=== PATIENT | female | born 1990 | race Hispanic/Latino ===

== ENCOUNTER 2017-08-23 11:19 | Day surgery (SDC) | payer BC, OTHER ==
[2017-08-21 17:55] VITALS: BMI 20.9
[2017-08-23 11:50] VITALS: RESP 18
[2017-08-23 11:51] LABS: HEMATOCRIT 40.6 % (34.0-47.0); MEAN CELL VOLUME 87.5 fl (81.0-99.0); MEAN CORPUSCULAR HEMOGLOBIN 28.7 pg (27.0-31.0); MEAN CORPUSCULAR HGB CONC 32.8 g/dL (33.0-37.0); RED CELL DISTRIBUTION WIDTH 13.1 % (11.5-14.5); WHITE BLOOD COUNT 5.1 K/uL (4.8-10.8)
[2017-08-23] MEDS ORDERED: Lactated Ringer's 1,000 ML IV ONE ×3 (12:13→17:00)
[2017-08-23] MEDS ORDERED: Lidocaine 4% (Laryng-O-Jet) Kit MM ONE (13:09)
[2017-08-23] MEDS ORDERED: Rocuronium 10 mg/ml (5 ml) ONE (13:09)
[2017-08-23] MEDS ORDERED: Propofol 10 mg/ml Inj (20 ML) ONE (13:09)
[2017-08-23] MEDS ORDERED: Succinylcholine 200 mg/10 ml Inj IV ONE (13:11)
[2017-08-23] MEDS ORDERED: ceFAZolin IV 1 gm in Dextrose 2 GM/100 ML BAG IVPB ONE (13:15)
[2017-08-23] MEDS ORDERED: ceFAZolin IV 1 gm in Dextrose 1 GM/50 ML BAG IVPB ONE (13:16)
[2017-08-23] MEDS ORDERED: Midazolam 2 MG/2 ML VIAL ONE (13:54)
[2017-08-23] MEDS: Bupivacaine 0.5% Inj(30mL) ONE ×3 (14:20→14:35)
[2017-08-23] MEDS ORDERED: Dexamethasone 4 mg/1 ml ONE (14:31)
[2017-08-23] MEDS ORDERED: Neostigmine Methylsulfate 2 MG/2 ML ML IV ONE (16:01)
[2017-08-23] MEDS ORDERED: HYDROmorphone 0.5 mg/0.5 ml ISec IVP PRN (16:22)
[2017-08-23] MEDS ORDERED: Lactated Ringer's 1,000 ML IV SCH (16:30)
[2017-08-23] MEDS ORDERED: Oxycodone/Acetaminophen 5/325 mg Tab PO PRN (16:53)
[2017-08-23] MEDS ORDERED: Oxycodone/Acetaminophen 5/325 mg Tab PO ONE (19:15)
[2017-08-23 20:05] VITALS: BP 117/64; PULSE 78; TEMP 98.5; O2SAT 97
--- NOTE | 2017-09-03 10:05 | PCM.OP ---
Operative Report - Operative Report Date of Surgery/Procedure: 08/23/17 Time of Surgery/Procedure: 08:00 Surgeon: Dr. Herb Hunt Data Base Administrator: Dr. Chet Faria Anesthesia/Sedation: general/Dr. 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 2-appendectomy. Brief History: Dr. Faria requested an intraoperative consult for endometriosis involving the rectum and appednix. Description of the procedure: The patient had already been brought to the operating room by Dr. chet Faria (separate dictation). After taking control of the robotic consule the first of three lesions were examined by videoscopy. With blunt and sharp dissection with the aid of electrocautery the first lesion , most disral was dissected circumferentially and lifted from the rectal wall. After removing it en-bloc it was sent separartely to pathology. The other two lesions were removed in a similar manner. Hemostasis was deemed adeqaute as we proceded to evaluate the appendix. With blunt and sharp dissection the mesentery of the appmnedix was freed and the appnediceal artery was dessicated with electrocautery. With the appendix freed to the base a double ligature of 3- 0 PDS was placed via loop sutures to the base. The appendix was then transected and sent to pathology as a separate specimen. Hemostasis was deemed adeqaute and the operation was again turned over to Dr. Faria (separate dictation). Estimated Blood Loss: 5 cc Sponge/Instrument Count: correct Complications: none Discharge & Condition: stable
--- NOTE | 2017-09-04 17:49 | OP ---
PROCEDURE DATE: 08/23/2017 SURGEON: Chet Faria MD. ASSISTED BY: Herb Hunt MD. ANESTHESIA PERFORMED BY: Stephy Valencia MD. PREOPERATIVE DIAGNOSES: Severe pelvic pain, dysmenorrhea, dyspareunia, bladder pain, rule out endometriosis. POSTOPERATIVE DIAGNOSES: Severe pelvic pain, dysmenorrhea, dyspareunia, bladder pain, rule out endometriosis, extensive pelvic endometriosis extending to the pelvis and the rectum and the appendix. PROCEDURE PERFORMED: Cystoscopy with bilateral ureteral catheterization, hysteroscopy, dilatation and curettage, injection of IC-Green to the ureter, robotic laparoscopic excision of endometriosis, bilateral ureterolysis, excision of rectal endometriosis, and appendectomy to be dictated separately by Dr. Herb Hunt. SPECIMEN SENT: Endometrial biopsies, appendix, left periureteral endometriosis, right periureteral endometriosis, posterior cervical endometriosis, sigmoid mesentery endometriosis, perirectal endometriosis, left uterosacral endometriosis, and left perirectal endometriosis. COMPLICATIONS: None. ESTIMATED BLOOD LOSS: Minimal. INDICATIONS FOR THE PROCEDURE: This patient is a 27-year-old female with a very long history of pelvic pain, very severe, both on the periods and in between the periods as well as dyspareunia. She had been under the care of both physical therapy, which she did for a long time as well as therapeutic injection for pain, which helped but did not completely solve the problem. She was referred to me and had multiple emergency room admissions prior to my visits. Upon examination, she displayed clinical signs of endometriosis as well as peritoneal signs of endometriosis. She was counseled with regards to the risks and benefits of the surgery and she signed the consent and was taken to the operative room. DESCRIPTION OF PROCEDURE: After adequate anesthesia was obtained, patient was placed in dorsal lithotomy position. She was prepped and draped. The surgeon gowned and gloved. At this point, a cystoscope was inserted into the bladder under direct visualization. A pancystoscopy was performed revealing normal-sized bladder with no evidence of interstitial cystitis. Both ureteral ostia appeared to be in the normal anatomic position. An open-ended stent was used to catheterize the left catheter. The left ureter, which was pushed all the way to the distal ureter, 5 mL of IC-Green were then injected. At this point, on the right-hand side, a stent was advanced into the right ureter all the way to the distal ureter and 5 mL of IC-Green was then injected. At this point, the stents were removed, the cystoscope was removed, and a 16-Chinese [place] was placed into the bladder. At this point, attention was in the vagina where a speculum was placed in the vagina. The anterior lip of the cervix was grasped. The cervix was dilated and a hysteroscope was inserted into the uterine cavity. The uterine cavity appeared to be normal in size. It appeared to be slightly proliferative with slight polypoid appearance. Therefore, a gentle D and C was performed without any complications and sent to pathology. At this point, after placing the uterine manipulator in the uterus, attention was on the abdomen where after re-gowning and re-gloving, the abdomen was entered utilizing the traditional open laparoscopy technique. The abdomen was insufflated and at this point, under direct visualization, 3 additional trocars were inserted, left upper quadrant, right upper quadrant, and left mid quadrant. At this point, the da Jason robot was docked, the abdomen was examined with no evidence of endometriosis in the upper abdomen. The appendix appeared to be affected by endometriosis with clear lesions of endometriosis. Dr. Hunt was called in and he performed an appendectomy that he will dictate separately. At this point, the rest of the procedure was performed. The first part of the procedure involved excision on the left-hand side where after identifying the ureter, thanks to fluorescence, the peritoneum was opened and the retroperitoneal space was entered. A full dissection was performed, lateralizing the ureter, and excising a large area of endometriosis that stem from the inferior border of the infundibulopelvic ligament, all the way to the uterosacral ligament, the full area was excised. At this point, a large swath of the endometriosis was sent out. The posterior aspect of the cervix was then pushed out utilizing the Valt[place] and a full excision of the posterior cul-de-sac was performed incorporating fragments of the anterior rectal serosa. This was also sent to pathology. At this point, attention was on the right-hand side where similarly to what was done on the left side, the peritoneum was entered and the retroperitoneal space was entered and the ureter was then progressively dissected off and lateralized. An area of peritoneum containing endometriosis was excised. Additional lesions of endometriosis were present on the rectum, 2 lesions were anteriorly in the lower rectosigmoid. They were excised directly and did not require closure as the muscularis was not entered. Additionally, there was an area by the left uterosacral ligament that was also like excised directly without any problem. Additional areas of inflammatory type lesions, not endometriosis, were ablated extensively and full posterior aspect of the uterus was also ablated as it was covered with inflammatory tissue. At this point, it was checked for additional endometriosis lesions, which were not present. Both fallopian tubes appeared to be normal as well as the ovaries. The pelvis was abundantly irrigated and the da Jason robot was undocked. The abdomen was desufflated. The instruments were removed. The incisions were closed in layers utilizing 0-PDS for the fascia and 4-0 Monocryl for the skin. At the end of the procedure, the patient was taken to recovery room in excellent condition. Chet Faria MD MTDD
== END 2017-08-23 20:06 | disposition home or self-care (01) ==
LOC: H.OPSURG 11:19
PROVIDERS: ATTEND Obstetrics & Gynecology Reproductive Endocrinology
DX: N80.0 Endometriosis of uterus (principal); N94.6 Dysmenorrhea, unspecified; N80.5 Endometriosis of intestine
CPT/HCPCS: 36415; 44979; 45171; 52332; 58662; 85027; 86850; 86900; 88305; C1729; J0330; J0690; J1100; J1170; J1885; J2001; J2250; J2405; J2704; J2710; J2765; J3010; J7030; J7040; J7120